=== PATIENT | male | born 1980 | race Caucasian/White ===

== ENCOUNTER 2024-11-08 06:31 | Day surgery (SDC) | payer BC ==
[~2024-11-08 06:31] MED LIST: Lactated Ringers 1,000 ML IV SCH
[2024-11-08] MEDS ORDERED: Bupivacaine 0.5% 30 ML SDV ONE (07:04)
[2024-11-08] MEDS: Lactated Ringers 1,000 ML IV SCH (07:18)
[2024-11-08] MEDS ORDERED: Propofol 200 MG/20 ML SDV ONE (07:29)
[2024-11-08] MEDS ORDERED: fentaNYL 250 MCG/5 ML SDV ONE (07:30)
[2024-11-08] MEDS ORDERED: Albuterol 0.083% 2.5 MG/3 ML Neb Soln NEB PRN (07:42)
[2024-11-08] MEDS ORDERED: Morphine 2 MG/ML SYRINGE IVPUSH PRN (07:42)
[2024-11-08] MEDS ORDERED: Ondansetron 4 MG/2 ML SDV IVPUSH PRN (07:42)
[2024-11-08] MEDS ORDERED: Naloxone 0.4 MG/ML SDV IVPUSH PRN (07:42)
[2024-11-08] MEDS ORDERED: Phenylephrine HCl In 0.9% NaCl 1 MG/10 ML Syringe IVPUSH PRN (07:42)
[2024-11-08] MEDS ORDERED: HYDROmorphone 1 MG/ML Syringe IVPUSH PRN (07:42)
[2024-11-08] MEDS ORDERED: fentaNYL 50 MCG/ML SDV IVPUSH PRN (07:42)
[2024-11-08] MEDS ORDERED: Lidocaine 1% 20 ML MDV ONE (07:42)
[2024-11-08] MEDS ORDERED: Metoclopramide 10 MG/2 ML SDV IVPUSH PRN (07:42)
[2024-11-08] MEDS ORDERED: Ketamine HCL/NACL, ISO-OSM 50 MG/5 ML Syringe ONE (07:53)
[2024-11-08] MEDS ORDERED: propofoL 500 MG/50 ML 50 ML ONE (07:58)
[2024-11-08] MEDS ORDERED: HYDROmorphone 1 MG/ML Syringe ONE (08:04)
[2024-11-08] MEDS ORDERED: Ondansetron 4 MG/2 ML SDV ONE (08:15)
[2024-11-08] MEDS ORDERED: Phenylephrine HCl In 0.9% NaCl 1 MG/10 ML Syringe ONE (08:17)
[2024-11-08] MEDS ORDERED: Lactated Ringers 1,000 ML IV SCH (09:00)
== END 2024-11-08 09:55 | disposition home or self-care (01) ==
LOC: MW.SDS 06:31
PROVIDERS: ATTEND Surgery
DX: L72.11 Pilar cyst (principal); E78.00 Pure hypercholesterolemia, unspecified; I10 Essential (primary) hypertension; Z79.899 Other long term (current) drug therapy
CPT/HCPCS: 22902; 27043; J0665; J1171; J2371; J2405; J2704; J7120; 00800; J3010; J3490